=== PATIENT | female | born 1950 | race Caucasian/White ===

== ENCOUNTER 2016-10-28 11:41 | Emergency (ER) | payer OTHER ==
[2016-10-28] MEDS ORDERED: Prochlorperazine 10 MG/2 ML VIAL ONE (11:51)
[2016-10-28] MEDS ORDERED: diphenhydrAMINE HCl 25 MG CAP ONE (11:51)
[2016-10-28] MEDS ORDERED: Labetalol HCl 100 MG/20 ML VIAL ONE (11:57)
[2016-10-28 12:25] LABS: #Basophils 0.1 thou/uL (0.0-0.2); #Eosinphils 0.2 thou/uL (0.0-0.7); #Lymphocytes 1.4 thou/uL (1.20-3.40); #Monocytes 0.3 thou/uL (0.11-0.59); #Neutrophils 4.8 thou/uL (1.40-6.50); %Basophils 1.1 % (0.0-1.0); %Eosinophils 2.6 % (0.0-10.0); %Lymphocytes 20.5 % (21.0-51.0); %Monocytes 4.5 % (0.0-10.0); %Neutrophils 71.3 % (42.0-75.0); Hemoglobin 12.2 g/dL (12.0-16.0); Mean Corpuscular HGB CONC 33.5 g/dL (32.0-36.0); Mean Corpuscular Hemoglobin 29.6 pg (27.0-31.0); Mean Corpuscular Volume 88.4 fl (81.0-99.0); Mean Platelet Volume 8.2 fL (7.4-10.4); Platelet Count 184 thou/uL (130-400); RBC Distribution Width 14.7 % (11.5-14.5); Red Blood Cell (RBC) Count 4.13 mill/uL (4.20-5.40); White Blood Cell (WBC) Count 6.7 thou/uL (4.8-10.8)
[2016-10-28 12:27] LABS: ALT (SGPT) 13 U/L (8-55); AST (SGOT) 15 U/L (5-34); Albumin 3.8 g/dL (3.4-4.8); Alkaline Phosphatase 110 U/L (40-150); Anion Gap 13 mmol/L (10-20); BUN (Urea Nitrogen) 9 mg/dL (9.8-20.1); Bilirubin, Total 0.6 mg/dL (0.2-1.2); Calc. Creatinine Clearance 0 mL/min (70-130); Calcium 8.7 mg/dL (7.8-10.44); Carbon Dioxide 21 mmol/L (23-31); Chloride 110 mmol/L (98-107); Estimated GFR-MDRD 55; Globulin 3.3 g/dL (2.4-3.5); Glucose 154 mg/dL (80-115); Protein, Total 7.1 g/dL (6.0-8.3); Sodium 140 mmol/L (136-145)
[2016-10-28 12:29] LABS: CKMB 0.9 ng/mL (0-6.6); Troponin I Less than 0.010 ng/mL (< 0.028)
--- NOTE | 2016-10-28 17:00 | RAD ---
PORTABLE CHEST: Date: 10-28-16 Comparison: None. FINDINGS: An AP portable film at 1201 shows heart to be normal in size for body habitus and AP projection. The re is no vascular congestion, edema, or pleural effusion. The trachea probably deviates somewhat as it crosses the aortic arch. IMPRESSION: No acute thoracic finding. POS: HOME
== END 2016-10-28 13:20 | disposition home or self-care (01) ==
LOC: BURERS 11:41
DX: I11.0 Hypertensive heart disease with heart failure (principal); I50.9 Heart failure, unspecified; F41.9 Anxiety disorder, unspecified; F32.9 Major depressive disorder, single episode, unspecified; E11.9 Type 2 diabetes mellitus without complications; E78.5 Hyperlipidemia, unspecified; I25.10 Atherosclerotic heart disease of native coronary artery without angina pectoris; E78.00 Pure hypercholesterolemia, unspecified; Z79.899 Other long term (current) drug therapy; Z79.82 Long term (current) use of aspirin; Z79.02 Long term (current) use of antithrombotics/antiplatelets
CPT/HCPCS: 71010; 80053; 82553; 84443; 84484; 85025; 93005; 94760; 96374; J0780

== ENCOUNTER 2016-10-30 16:35 | Emergency (ER) | payer OTHER ==
[2016-10-30 17:06] LABS: #Eosinphils 0.2 thou/uL (0.0-0.7); #Lymphocytes 1.4 thou/uL (1.20-3.40); #Monocytes 0.3 thou/uL (0.11-0.59); #Neutrophils 5.3 thou/uL (1.40-6.50); %Basophils 0.6 % (0.0-1.0); %Eosinophils 3.2 % (0.0-10.0); %Monocytes 4.7 % (0.0-10.0); %Neutrophils 72.6 % (42.0-75.0); Hemoglobin 11.9 g/dL (12.0-16.0); Mean Corpuscular HGB CONC 32.5 g/dL (32.0-36.0); Mean Corpuscular Hemoglobin 28.6 pg (27.0-31.0); Mean Platelet Volume 7.4 fL (7.4-10.4); Platelet Count 181 thou/uL (130-400); RBC Distribution Width 14.7 % (11.5-14.5); Red Blood Cell (RBC) Count 4.15 mill/uL (4.20-5.40); White Blood Cell (WBC) Count 7.3 thou/uL (4.8-10.8)
[2016-10-30 17:28] LABS: Carbon Dioxide 23 mmol/L (23-31); Chloride 109 mmol/L (98-107); Potassium 3.7 mmol/L (3.5-5.1); Sodium 143 mmol/L (136-145)
[2016-10-30 17:29] LABS: ALT (SGPT) 14 U/L (8-55); AST (SGOT) 15 U/L (5-34); Albumin 3.6 g/dL (3.4-4.8); Alkaline Phosphatase 98 U/L (40-150); Anion Gap 10 mmol/L (10-20); BUN (Urea Nitrogen) 7 mg/dL (9.8-20.1); Bilirubin, Total 0.5 mg/dL (0.2-1.2); Calc. Creatinine Clearance 0 mL/min (70-130); Calcium 8.7 mg/dL (7.8-10.44); Estimated GFR-MDRD 59; Globulin 3.2 g/dL (2.4-3.5); Glucose 127 mg/dL (80-115); Protein, Total 6.8 g/dL (5.8-8.1)
[2016-10-30 17:30] LABS: CKMB 0.9 ng/mL (0-6.6); Troponin I Less than 0.010 ng/mL (< 0.028)
== END 2016-10-30 17:52 | disposition home or self-care (01) ==
LOC: BURERS 16:35
DX: I10 Essential (primary) hypertension (principal); E11.9 Type 2 diabetes mellitus without complications; E78.5 Hyperlipidemia, unspecified; I25.10 Atherosclerotic heart disease of native coronary artery without angina pectoris; E78.00 Pure hypercholesterolemia, unspecified; F32.9 Major depressive disorder, single episode, unspecified
CPT/HCPCS: 36415; 80053; 82553; 84484; 85025

== ENCOUNTER 2017-09-11 15:20 | Emergency (ER) | payer MEDICARE, MEDICAID ==
[2017-09-11] MEDS ORDERED: Ondansetron HCl/PF 4 MG/2 ML Vial ONE (15:40)
[2017-09-11 15:58] LABS: #Basophils 0.1 thou/uL (0.0-0.2); #Eosinphils 0.2 thou/uL (0.0-0.7); #Lymphocytes 1.4 thou/uL (1.20-3.40); #Monocytes 0.4 thou/uL (0.11-0.59); #Neutrophils 6.2 thou/uL (1.40-6.50); %Basophils 0.6 % (0.0-1.0); %Eosinophils 2.3 % (0.0-10.0); %Lymphocytes 16.7 % (21.0-51.0); %Monocytes 4.3 % (0.0-10.0); Hemoglobin 12.2 g/dL (12.0-16.0); Mean Corpuscular HGB CONC 35.4 g/dL (32.0-36.0); Mean Corpuscular Hemoglobin 29.9 pg (27.0-31.0); Mean Corpuscular Volume 84.4 fl (81.0-99.0); Mean Platelet Volume 8.3 fL (7.4-10.4); Platelet Count 225 thou/uL (130-400); RBC Distribution Width 15.1 % (11.5-14.5); Red Blood Cell (RBC) Count 4.06 mill/uL (4.20-5.40); White Blood Cell (WBC) Count 8.2 thou/uL (4.8-10.8)
[2017-09-11 16:11] LABS: ALT (SGPT) 14 U/L (8-55); AST (SGOT) 16 U/L (5-34); Alkaline Phosphatase 101 U/L (40-150); Anion Gap 15 mmol/L (10-20); BUN (Urea Nitrogen) 19 mg/dL (9.8-20.1); Bilirubin, Total 0.5 mg/dL (0.2-1.2); Calc. Creatinine Clearance 0 mL/min (70-130); Calcium 9.7 mg/dL (7.8-10.44); Carbon Dioxide 24 mmol/L (23-31); Chloride 106 mmol/L (98-107); Estimated GFR-MDRD 37; Globulin 3.6 g/dL (2.4-3.5); Glucose 145 mg/dL (80-115); Lipase 30 U/L (8-78); Potassium 4.2 mmol/L (3.5-5.1); Protein, Total 7.6 g/dL (6.0-8.3); Sodium 141 mmol/L (136-145)
== END 2017-09-11 17:00 | disposition home or self-care (01) ==
LOC: BURERS 15:20
DX: R19.7 Diarrhea, unspecified (principal); I25.10 Atherosclerotic heart disease of native coronary artery without angina pectoris; E11.9 Type 2 diabetes mellitus without complications; E78.5 Hyperlipidemia, unspecified; F32.9 Major depressive disorder, single episode, unspecified
CPT/HCPCS: 80053; 83690; 85025; 96361; 96374; 96375; J2405

== ENCOUNTER 2017-10-02 09:13 | Emergency (ER) | payer MEDICARE, MEDICAID ==
[2017-10-02] MEDS ORDERED: Nitroglycerin 0.4 MG TAB (25 Tab Bottle) ONE (09:26)
[2017-10-02] MEDS ORDERED: Ketorolac Tromethamine 30 MG/ML VIAL ONE (09:26)
[2017-10-02 09:33] LABS: #Basophils 0.1 thou/uL (0.0-0.2); #Eosinphils 0.2 thou/uL (0.0-0.7); #Lymphocytes 1.1 thou/uL (1.20-3.40); #Monocytes 0.4 thou/uL (0.11-0.59); #Neutrophils 6.7 thou/uL (1.40-6.50); %Basophils 0.6 % (0.0-1.0); %Eosinophils 1.9 % (0.0-10.0); %Lymphocytes 13.5 % (21.0-51.0); %Monocytes 4.6 % (0.0-10.0); %Neutrophils 79.4 % (42.0-75.0); Hemoglobin 11.3 g/dL (12.0-16.0); Mean Corpuscular HGB CONC 32.7 g/dL (32.0-36.0); Mean Corpuscular Hemoglobin 27.5 pg (27.0-31.0); Mean Corpuscular Volume 83.9 fl (81.0-99.0); Mean Platelet Volume 7.4 fL (7.4-10.4); Platelet Count 179 thou/uL (130-400); RBC Distribution Width 14.7 % (11.5-14.5); White Blood Cell (WBC) Count 8.4 thou/uL (4.8-10.8)
[2017-10-02 09:51] LABS: ALT (SGPT) 15 U/L (8-55); AST (SGOT) 11 U/L (5-34); Albumin 3.8 g/dL (3.4-4.8); Alkaline Phosphatase 109 U/L (40-150); Anion Gap 15 mmol/L (10-20); BUN (Urea Nitrogen) 14 mg/dL (9.8-20.1); Bilirubin, Total 0.5 mg/dL (0.2-1.2); Calc. Creatinine Clearance 0 mL/min (70-130); Calcium 8.9 mg/dL (7.8-10.44); Carbon Dioxide 24 mmol/L (23-31); Chloride 105 mmol/L (98-107); Estimated GFR-MDRD 37; Globulin 3.4 g/dL (2.4-3.5); Glucose 139 mg/dL (80-115); Lipase 13 U/L (8-78); Potassium 3.5 mmol/L (3.5-5.1); Protein, Total 7.2 g/dL (6.0-8.3); Sodium 140 mmol/L (136-145)
[2017-10-02 09:52] LABS: CKMB 0.6 ng/mL (0-6.6); Troponin I Less than 0.010 ng/mL (< 0.028)
[2017-10-02] MEDS ORDERED: Fentanyl 100 MCG/2 ML VIAL ONE (10:11)
[2017-10-02 12:39] LABS: CKMB 0.5 ng/mL (0-6.6); Troponin I Less than 0.010 ng/mL (< 0.028)
--- NOTE | 2017-10-02 20:29 | RAD ---
PORTABLE CHEST: 10/02/17 An AP portable film at 0925 is compared with a 10/28/16 study. The heart is minimally enlarged and unchanged in size. There is no vascular congestion, edema, or ple ural effusion. The lungs are clear. IMPRESSION: No acute thoracic finding. POS: HOME
== END 2017-10-02 13:05 | disposition home or self-care (01) ==
LOC: BURERS 09:13
DX: R07.89 Other chest pain (principal); I25.10 Atherosclerotic heart disease of native coronary artery without angina pectoris; E11.9 Type 2 diabetes mellitus without complications; E78.5 Hyperlipidemia, unspecified; I10 Essential (primary) hypertension; F32.9 Major depressive disorder, single episode, unspecified; Z79.82 Long term (current) use of aspirin; Z79.899 Other long term (current) drug therapy
CPT/HCPCS: 36415; 71045; 80053; 82553; 83690; 83880; 84484; 85025; 93005; 94760; 96361; 96374; 96375; J1885; J3010

== ENCOUNTER 2018-02-05 10:53 | Outpatient (CLI) | payer MEDICARE, OTHER ==
--- NOTE | 2018-02-05 22:09 | ULT ---
BILATERAL RENAL ULTRASOUND: 02/05/18 Ultrasonography of the urinary tract was performed for evaluation of renal failure. The right kidney measured 9.7 x 4.3 x 4.6 cm. There was perhaps some very minor thinning of the susan x, but not by much, and the echogenicity was normal. There is no hydronephrosis. No sign of mass was seen. The left kidney was 10.5 x 5.8 x 4.7 cm. Similarly, its cortex as marginally thinned but normal in ec hogenicity. There was no obstruction or mass. The urinary bladder is not very distended. The bladder wall was mildly thickened at 5 mm, but this is most likely due to lack of distention. IMPRESSION: No evidence of obstructive uropathy. POS: HOME
== END 2018-02-05 10:54 | disposition home or self-care (01) ==
LOC: BURULT 10:53
PROVIDERS: ATTEND Internal Medicine Nephrology
DX: N17.9 Acute kidney failure, unspecified (principal)
CPT/HCPCS: 76770

== ENCOUNTER 2018-02-11 18:55 | Emergency (ER) | payer MEDICARE, OTHER ==
--- NOTE | 2018-02-11 22:27 | RAD ---
LEFT ELBOW TWO VIEWS: 02/11/18 No fracture, dislocation, or joint effusion was seen. All bones appeared intact. IMPRESSION: No acute finding. POS: HOME
--- NOTE | 2018-02-11 22:32 | CT ---
CT OF THE BRAIN WITHOUT CONTRAST 02/11/18 No prior studies were available for comparison. The ventricles are normal in size for age and show no shift. There is some patchy low density areas in the deep white matter bilaterally, a little more so in the left frontal lobe than the right. These findings are most consistent with chronic white matte r ischemia. No intracranial bleeding or extra-axial hematoma was seen. The visible paranasal sinuses are clear. The calvarium appears intact. IMPRESSION: No acute intracranial findings. POS: HOME
== END 2018-02-11 20:00 | disposition home or self-care (01) ==
LOC: BURERS 18:55
DX: S01.01XA Laceration without foreign body of scalp, initial encounter (principal); S06.0X0A Concussion without loss of consciousness, initial encounter; I25.10 Atherosclerotic heart disease of native coronary artery without angina pectoris; E11.9 Type 2 diabetes mellitus without complications; E78.5 Hyperlipidemia, unspecified; I10 Essential (primary) hypertension; F32.9 Major depressive disorder, single episode, unspecified; Z79.82 Long term (current) use of aspirin; Z79.899 Other long term (current) drug therapy; W01.0XXA Fall on same level from slipping, tripping and stumbling without subsequent striking against object, initial encounter
CPT/HCPCS: 12001; 70450

== ENCOUNTER 2018-04-09 14:53 | Outpatient (CLI) | payer MEDICARE, MEDICAID | END 2018-04-09 14:54 | disposition home or self-care (01) | LOC: BURRAD 14:53 | PROVIDERS: ATTEND Family Medicine | DX: Z01.818 Encounter for other preprocedural examination (principal) | CPT/HCPCS: 93005; 93010 ==

== ENCOUNTER 2018-05-22 14:48 | Outpatient (CLI) | payer MEDICARE, MEDICAID ==
--- NOTE | 2018-05-22 20:38 | RAD ---
RIGHT KNEE FOUR VIEWS: 05/22/18 No fracture, joint effusion, or acute bony change was seen. There is minor medial joint space narrowi ng and minor osteophytes. IMPRESSION: No acute finding. POS: HOME
--- NOTE | 2018-05-22 20:39 | RAD ---
LEFT KNEE FOUR VIEWS: 05/22/18 No fracture, dislocation or joint effusion was seen. The joint surfaces appear normal. IMPRESSION: No acute finding. POS: HOME
== END 2018-05-22 14:49 | disposition home or self-care (01) ==
LOC: BURRAD 14:48
PROVIDERS: ATTEND Family Medicine
DX: M25.561 Pain in right knee (principal); M25.562 Pain in left knee

== ENCOUNTER 2018-06-25 15:24 | Emergency (ER) | payer MEDICARE, MEDICAID ==
--- NOTE | 2018-06-25 20:29 | RAD ---
LEFT KNEE FOUR VIEWS: 06/25/2018 COMPARISON: 05/22/2018 FINDINGS: There are no new findings. No fracture, periosteal reaction, or bony sclerosis is seen. There is no joint effusion. The joint space appears normal. IMPRESSION: No significant finding. POS: HOME
== END 2018-06-25 16:20 | disposition home or self-care (01) ==
LOC: BURERS 15:24
DX: M23.92 Unspecified internal derangement of left knee (principal); L03.116 Cellulitis of left lower limb; I25.10 Atherosclerotic heart disease of native coronary artery without angina pectoris; E11.9 Type 2 diabetes mellitus without complications; E78.5 Hyperlipidemia, unspecified; I10 Essential (primary) hypertension; F32.9 Major depressive disorder, single episode, unspecified; Z79.82 Long term (current) use of aspirin; Z79.899 Other long term (current) drug therapy

== ENCOUNTER 2018-09-16 16:43 | Emergency (ER) | payer MEDICARE, MEDICAID ==
[2018-09-16] MEDS ORDERED: Aspirin Chewable 81 MG TAB ONE (16:56)
[2018-09-16] MEDS ORDERED: Nitroglycerin 0.4 MG TAB 1 EACH ONE ×2 (16:56→17:06)
[2018-09-16] MEDS ORDERED: Benzonatate 100 MG CAP ONE (17:03)
[2018-09-16 17:09] LABS: #Eosinphils 0.2 thou/uL (0.0-0.7); #Lymphocytes 1.6 thou/uL (1.20-3.40); #Monocytes 0.3 thou/uL (0.11-0.59); #Neutrophils 6.3 thou/uL (1.40-6.50); %Basophils 0.6 % (0.0-1.0); %Lymphocytes 19.3 % (21.0-51.0); %Neutrophils 75.1 % (42.0-75.0); Hemoglobin 11.2 g/dL (12.0-16.0); Mean Corpuscular HGB CONC 32.5 g/dL (32.0-36.0); Mean Corpuscular Hemoglobin 28.6 pg (27.0-31.0); Mean Platelet Volume 8.9 fL (7.4-10.4); Platelet Count 194 thou/uL (130-400); RBC Distribution Width 15.1 % (11.5-14.5); Red Blood Cell (RBC) Count 3.92 mill/uL (4.20-5.40); White Blood Cell (WBC) Count 8.3 thou/uL (4.8-10.8)
[2018-09-16 17:21] LABS: ALT (SGPT) 18 U/L (8-55); AST (SGOT) 20 U/L (5-34); Alkaline Phosphatase 107 U/L (40-150); Anion Gap 16 mmol/L (10-20); BUN (Urea Nitrogen) 8 mg/dL (9.8-20.1); Bilirubin, Total 0.3 mg/dL (0.2-1.2); Calc. Creatinine Clearance 0 mL/min (70-130); Calcium 8.7 mg/dL (7.8-10.44); Carbon Dioxide 21 mmol/L (23-31); Chloride 107 mmol/L (98-107); Estimated GFR-MDRD 42; Globulin 3.7 g/dL (2.4-3.5); Glucose 169 mg/dL (80-115); Protein, Total 7.7 g/dL (6.0-8.3); Sodium 140 mmol/L (136-145)
[2018-09-16] MEDS ORDERED: Pantoprazole 40 MG VIAL ONE (17:51)
--- NOTE | 2018-09-16 20:00 | RAD ---
PORTABLE CHEST 09/16/18 An AP portable film at 1658 is compared with a 10/02/17 study. The heart is normal in size. The patient is turned to the side which probably explains slight increas e in markings density on the left side. Otherwise, no definite infiltrate was seen. There is no conge stive change. IMPRESSION: No definite acute findings. POS: HOME
== END 2018-09-16 18:28 | disposition short-term general hospital (02) ==
LOC: BURERS 16:43
DX: R07.9 Chest pain, unspecified (principal); I25.10 Atherosclerotic heart disease of native coronary artery without angina pectoris; E11.9 Type 2 diabetes mellitus without complications; E78.5 Hyperlipidemia, unspecified; I10 Essential (primary) hypertension; F32.9 Major depressive disorder, single episode, unspecified; Z79.82 Long term (current) use of aspirin; Z79.899 Other long term (current) drug therapy
CPT/HCPCS: 71045; 80053; 83880; 84484; 85025; 93005; 96374; C9113

== ENCOUNTER 2019-01-21 16:05 | Emergency (ER) | payer MEDICARE, MEDICAID ==
--- NOTE | 2019-01-21 18:39 | RAD ---
RIGHT HAND THREE VIEWS: 01/21/2019 FINDINGS: No acute fracture is seen. There are some bony densities just medial to the hamate and the triquetra l bone. Their rounded margins suggest that they are more likely old than new. There are no findings strongly suggestive of acute fracture. Arteriosclerotic calcification is seen in the radial artery. The remainder of the hand and wrist appear intact. IMPRESSION: Probable old trauma medially, but no definite acute finding seen. POS: HOME
--- NOTE | 2019-01-21 18:40 | RAD ---
RIGHT WRIST THREE VIEWS: 01/21/2019 FINDINGS: Bony densities are seen at the medial aspect of the wrist, which are presumably due to old trauma, gi dc their rounded nature. I do not see an acute fracture. The distal radius and ulna appear intact. Arterial calcifications are present in the radial artery. IMPRESSION: Old trauma medially but no acute findings. POS: HOME
== END 2019-01-21 17:38 | disposition home or self-care (01) ==
LOC: BURERS 16:05
DX: S60.211A Contusion of right wrist, initial encounter (principal); I25.10 Atherosclerotic heart disease of native coronary artery without angina pectoris; E11.9 Type 2 diabetes mellitus without complications; E78.5 Hyperlipidemia, unspecified; I10 Essential (primary) hypertension; F32.9 Major depressive disorder, single episode, unspecified; Z79.899 Other long term (current) drug therapy; Z79.82 Long term (current) use of aspirin; X58.XXXA Exposure to other specified factors, initial encounter

== ENCOUNTER → 2019-04-25 | Emergency (ER) | payer MEDICARE, MEDICAID | LOC: BURERS 15:29 | DX: K04.7 Periapical abscess without sinus (principal); E11.9 Type 2 diabetes mellitus without complications; F32.9 Major depressive disorder, single episode, unspecified; I10 Essential (primary) hypertension; I25.10 Atherosclerotic heart disease of native coronary artery without angina pectoris; E78.5 Hyperlipidemia, unspecified; Z79.82 Long term (current) use of aspirin; Z79.899 Other long term (current) drug therapy; Z79.4 Long term (current) use of insulin | CPT/HCPCS: 99282 ==

== ENCOUNTER 2019-07-23 12:32 | Emergency (ER) | payer MEDICARE, MEDICAID | END 2019-07-23 12:55 | disposition home or self-care (01) | LOC: BURERS 12:32 | DX: K04.7 Periapical abscess without sinus (principal); I25.10 Atherosclerotic heart disease of native coronary artery without angina pectoris; E11.9 Type 2 diabetes mellitus without complications; E78.5 Hyperlipidemia, unspecified; F32.9 Major depressive disorder, single episode, unspecified; Z79.899 Other long term (current) drug therapy; Z79.82 Long term (current) use of aspirin | CPT/HCPCS: 99283 ==

== ENCOUNTER 2019-08-22 14:52 | Emergency (ER) | payer MEDICARE, MEDICAID ==
[2019-08-22 15:19] LABS: Bilirubin Small (Negative); Blood, Urine Moderate (Negative); Clarity Cloudy (Clear); Glucose, Urine (Dipstick) Negative (Negative); Leukocyte Small (Negative); Nitrite Negative (Negative); Protein, Urine (Dipstick) Negative (Neg-Trace); Urobilinogen 0.2 mg/dL (Less than 2)
[2019-08-22 15:28] LABS: Bacteria/HPF 3+ HPF (None Seen); Broad Cast None Seen LPF (None Seen); Calcium Oxalate Crystals None Seen HPF (None Seen); Cellular Cast None Seen LPF (None Seen); Epithelial Cast None Seen LPF (None Seen); Fatty Cast None Seen LPF (None Seen); Mucous/LPF 1+ LPF (<2+); Other Casts None Seen LPF (None Seen); Oval Fat Bodies/HPF None Seen HPF (None Seen); Red Blood Cell Cast None Seen LPF (None Seen); Renal Epithelial None Seen HPF (None Seen); Sperm/HPF None Seen HPF (None Seen); Transitional Epithelial None Seen HPF (None Seen); Trichomonas/HPF None Seen HPF (None Seen); Triple Phosphate Crystal None Seen HPF (None Seen); Unclassified Crystals None Seen HPF (None Seen); WBC/HPF 21-50 HPF (0-3); Waxy Cast None Seen LPF (None Seen); White Blood Cell Cast None Seen LPF (None Seen); Yeast-Budding None Seen HPF (None Seen); Yeast-Hyphae None Seen HPF (None Seen)
== END 2019-08-22 16:01 | disposition home or self-care (01) ==
LOC: BURERS 14:52
DX: N39.0 Urinary tract infection, site not specified (principal); I25.10 Atherosclerotic heart disease of native coronary artery without angina pectoris; E11.9 Type 2 diabetes mellitus without complications; E78.5 Hyperlipidemia, unspecified; I10 Essential (primary) hypertension; F32.9 Major depressive disorder, single episode, unspecified; Z79.82 Long term (current) use of aspirin; Z79.899 Other long term (current) drug therapy
CPT/HCPCS: 81003; 81015; 87077; 87086; 87186; 99283

== ENCOUNTER 2019-12-30 14:56 | Emergency (ER) | payer MEDICARE, OTHER ==
[2019-12-30 15:55] LABS: #Eosinphils 0.1 thou/uL (0.0-0.7); #Lymphocytes 1.3 thou/uL (1.20-3.40); #Monocytes 0.3 thou/uL (0.11-0.59); #Neutrophils 5.8 thou/uL (1.40-6.50); %Basophils 0.7 % (0.0-1.0); %Eosinophils 1.8 % (0.0-10.0); %Lymphocytes 16.8 % (21.0-51.0); %Monocytes 3.4 % (0.0-10.0); %Neutrophils 77.4 % (42.0-75.0); Hemoglobin 11.6 g/dL (12.0-16.0); Mean Corpuscular HGB CONC 30.8 g/dL (32.0-36.0); Mean Corpuscular Volume 91.1 fL (78.0-98.0); Mean Platelet Volume 10.1 fL (7.4-10.4); Platelet Count 179 thou/uL (130-400); RBC Distribution Width 15.2 % (11.5-14.5); Red Blood Cell (RBC) Count 4.15 mill/uL (4.20-5.40); White Blood Cell (WBC) Count 7.5 thou/uL (4.8-10.8)
[2019-12-30 16:02] LABS: Bilirubin Negative (Negative); Clarity CLEAR (Clear); Glucose, Urine (Dipstick) 500 mg/dL (Negative); Ketone, Urine Negative (Negative); Leukocyte Negative (Negative); Nitrite Negative (Negative); Protein, Urine (Dipstick) Negative (Neg-Trace); Specific Gravity, Urine 1.015 (1.005-1.030); Urobilinogen 0.2 mg/dL (Less than 2); pH, Urine 5.5 (5.0-9.0)
[2019-12-30 16:03] LABS: Blood, Urine Negative (Negative)
[2019-12-30 16:06] LABS: ALT (SGPT) 14 U/L (8-55); AST (SGOT) 11 U/L (5-34); Albumin 4.2 g/dL (3.4-4.8); Alkaline Phosphatase 115 U/L (40-110); Anion Gap 17 mmol/L (10-20); BUN (Urea Nitrogen) 19 mg/dL (9.8-20.1); Bilirubin, Total 0.4 mg/dL (0.2-1.2); Calc. Creatinine Clearance 0 mL/min (70-130); Calcium 10.2 mg/dL (7.8-10.44); Carbon Dioxide 25 mmol/L (23-31); Chloride 95 mmol/L (98-107); Estimated GFR-MDRD 27; Globulin 3.4 g/dL (2.4-3.5); Potassium 3.9 mmol/L (3.5-5.1); Protein, Total 7.6 g/dL (6.0-8.3); Sodium 133 mmol/L (136-145)
[2019-12-30] MEDS ORDERED: Insulin Regular 300 UNITS/3 ML VIAL ONE (16:07)
[2019-12-30 16:17] LABS: Glucose 630 mg/dL (80-115)
--- NOTE | 2019-12-30 20:27 | RAD ---
CHEST TWO VIEWS: 12/30/19 Comparison is made with the 09/20/18 study. The heart is normal in size and the lungs are clear. No focal infiltrate or effusion was seen. At mos t, some of the basilar markings may be mildly prominent, but they are no different than the prior crow dy. There is no vascular congestion, edema, or pleural effusion. IMPRESSION: No acute thoracic finding. POS: HOME
== END 2019-12-30 17:23 | disposition home or self-care (01) ==
LOC: BURERS 14:56
DX: E11.65 Type 2 diabetes mellitus with hyperglycemia (principal); I25.10 Atherosclerotic heart disease of native coronary artery without angina pectoris; E78.5 Hyperlipidemia, unspecified; I10 Essential (primary) hypertension; F32.9 Major depressive disorder, single episode, unspecified; Z79.899 Other long term (current) drug therapy; Z79.82 Long term (current) use of aspirin; Z79.4 Long term (current) use of insulin
CPT/HCPCS: 36416; 71046; 80053; 81003; 84443; 84484; 85025; 94760; 96361; 96374; J1815

== ENCOUNTER 2020-02-24 09:45 | Emergency (ER) | payer MEDICARE, OTHER ==
[2020-02-24 10:23] LABS: #Basophils 0.1 thou/uL (0.0-0.2); #Eosinphils 0.1 thou/uL (0.0-0.7); #Lymphocytes 1.9 thou/uL (1.20-3.40); #Monocytes 0.5 thou/uL (0.11-0.59); #Neutrophils 6.2 thou/uL (1.40-6.50); %Basophils 0.9 % (0.0-1.0); %Eosinophils 1.4 % (0.0-10.0); %Lymphocytes 21.8 % (21.0-51.0); %Monocytes 6.1 % (0.0-10.0); %Neutrophils 69.9 % (42.0-75.0); Mean Corpuscular HGB CONC 30.9 g/dL (32.0-36.0); Mean Corpuscular Hemoglobin 27.4 pg (27.0-31.0); Mean Corpuscular Volume 88.7 fL (78.0-98.0); Mean Platelet Volume 9.8 fL (7.4-10.4); Platelet Count 221 thou/uL (130-400); RBC Distribution Width 14.3 % (11.5-14.5); Red Blood Cell (RBC) Count 4.74 mill/uL (4.20-5.40); White Blood Cell (WBC) Count 8.8 thou/uL (4.8-10.8)
[2020-02-24 10:34] LABS: ALT (SGPT) 21 U/L (8-55); AST (SGOT) 16 U/L (5-34); Albumin 4.2 g/dL (3.4-4.8); Alkaline Phosphatase 128 U/L (40-110); Anion Gap 18 mmol/L (10-20); BUN (Urea Nitrogen) 17 mg/dL (9.8-20.1); Bilirubin, Total 0.5 mg/dL (0.2-1.2); Calc. Creatinine Clearance 0 mL/min (70-130); Calcium 9.9 mg/dL (7.8-10.44); Carbon Dioxide 28 mmol/L (23-31); Chloride 96 mmol/L (98-107); Estimated GFR-MDRD 34; Globulin 3.5 g/dL (2.4-3.5); Glucose 177 mg/dL (80-115); Lipase 24 U/L (8-78); Potassium 3.4 mmol/L (3.5-5.1); Protein, Total 7.7 g/dL (6.0-8.3); Sodium 139 mmol/L (136-145)
[2020-02-24 10:37] LABS: Bilirubin Small (Negative); Blood, Urine Negative (Negative); Clarity Cloudy (Clear); Glucose, Urine (Dipstick) Negative (Negative); Ketone, Urine Trace mg/dL (Negative); Leukocyte Negative (Negative); Nitrite Negative (Negative); Protein, Urine (Dipstick) Trace mg/dL (Neg-Trace); Specific Gravity, Urine 1.028 (1.002-1.036)
[2020-02-24] MEDS ORDERED: Iopamidol 370 76% 100 ML VIAL ONE (13:54)
--- NOTE | 2020-02-24 19:02 | CT ---
CT ABDOMEN AND PELVIS WITH CONTRAST: 02/24/20 The lung bases are clear. Some calcification is seen in the coronary arteries, particularly the LAD. The liver, spleen, pancreas, adrenal glands, kidneys and abdominal aorta showed no acute findings. Th e gallbladder was a little generous in volume, but its overall size really does not measure excessive , nor was there any signs of stones or wall thickening. The bowel shows no distention, wall thickenin g or inflammatory change around it. No free air or free fluid was detected. CT of the pelvis shows no pelvic masses, fluid collections, or inflammatory changes. Degenerative marquita nges are present in the spine. Finally, there may be a small hiatal hernia. IMPRESSION: No acute abdominal or pelvic findings to explain the patient's pain. Preliminary report called to Dr. Lund at 11:13 on 02/24/20. POS: HOME
== END 2020-02-24 11:25 | disposition home or self-care (01) ==
LOC: BURERS 09:45
DX: R11.2 Nausea with vomiting, unspecified (principal); T47.2X5A Adverse effect of stimulant laxatives, initial encounter; E11.9 Type 2 diabetes mellitus without complications; I25.10 Atherosclerotic heart disease of native coronary artery without angina pectoris; E78.5 Hyperlipidemia, unspecified; I10 Essential (primary) hypertension; F32.9 Major depressive disorder, single episode, unspecified; Z79.82 Long term (current) use of aspirin; Z79.4 Long term (current) use of insulin; Z79.899 Other long term (current) drug therapy
CPT/HCPCS: 36416; 74177; 80053; 81003; 83605; 83690; 85025; 96360; Q9967

== ENCOUNTER 2020-04-01 13:15 | Emergency (ER) | payer MEDICARE, OTHER ==
[2020-04-01 14:27] LABS: #Eosinphils 0.2 thou/uL (0.0-0.7); #Lymphocytes 1.5 thou/uL (1.20-3.40); #Monocytes 0.5 thou/uL (0.11-0.59); #Neutrophils 5.9 thou/uL (1.40-6.50); %Basophils 0.6 % (0.0-1.0); %Eosinophils 2.1 % (0.0-10.0); %Lymphocytes 18.6 % (21.0-51.0); %Monocytes 5.6 % (0.0-10.0); %Neutrophils 73.1 % (42.0-75.0); Hemoglobin 11.9 g/dL (12.0-16.0); Mean Corpuscular HGB CONC 31.9 g/dL (32.0-36.0); Mean Corpuscular Hemoglobin 28.1 pg (27.0-31.0); Mean Corpuscular Volume 88.2 fL (78.0-98.0); Mean Platelet Volume 8.9 fL (7.4-10.4); Platelet Count 178 thou/uL (130-400); RBC Distribution Width 14.9 % (11.5-14.5); Red Blood Cell (RBC) Count 4.23 mill/uL (4.20-5.40); White Blood Cell (WBC) Count 8.1 thou/uL (4.8-10.8)
[2020-04-01 14:41] LABS: ALT (SGPT) 12 U/L (8-55); AST (SGOT) 11 U/L (5-34); Albumin 4.1 g/dL (3.4-4.8); Alkaline Phosphatase 107 U/L (40-110); Anion Gap 16 mmol/L (10-20); BUN (Urea Nitrogen) 15 mg/dL (9.8-20.1); Bilirubin, Total 0.7 mg/dL (0.2-1.2); Calc. Creatinine Clearance 0 mL/min (70-130); Calcium 9.5 mg/dL (7.8-10.44); Carbon Dioxide 29 mmol/L (23-31); Chloride 97 mmol/L (98-107); Estimated GFR-MDRD 34; Globulin 3.3 g/dL (2.4-3.5); Glucose 169 mg/dL (80-115); Potassium 3.4 mmol/L (3.5-5.1); Protein, Total 7.4 g/dL (6.0-8.3); Sodium 139 mmol/L (136-145)
[2020-04-01] MEDS ORDERED: Clindamycin/D5W 600 mg/50 ml Premix Bag ONE (16:06)
[2020-04-01] MEDS ORDERED: HYDROmorphone 0.5 MG/0.5 ML SYRINGE ONE (16:22)
--- NOTE | 2020-04-01 17:53 | CT ---
CT OF THE NECK WITHOUT CONTRAST: 04/01/[address] of the lower face and neck was performed for evaluation of dental pain and swelling on the left side of the mandible. There is obvious swelling in the soft tissues anterior to the left side of the mandible anteriorly. T he lower left second bicuspid is carious and appears to have a periapical abscess at its root tip. T his is tooth #20. The soft tissue swelling anterior to the mandible at this point does not show defin ite fluid collections at this point in time to suggest a drainable abscess. I do not see an abscess i n the floor of the mouth. Dentition is poor in general. The visible portions of the maxillary sinuses were clear. The mandible is otherwise intact. Degenerative changes are seen in the spine. IMPRESSION: Significant dental caries in the lower left second bicuspid (#20) with evidence of a periapical absce ss and soft tissue swelling just anterior to the mandible at this point. Preliminary findings discussed with Dr. Reyes at 1536 on 04/01/20. POS: HOME
== END 2020-04-01 18:59 | disposition short-term general hospital (02) ==
LOC: BURERS 13:15
DX: K04.7 Periapical abscess without sinus (principal); L03.211 Cellulitis of face; I25.10 Atherosclerotic heart disease of native coronary artery without angina pectoris; E11.9 Type 2 diabetes mellitus without complications; E78.5 Hyperlipidemia, unspecified; I10 Essential (primary) hypertension; F32.9 Major depressive disorder, single episode, unspecified; Z79.899 Other long term (current) drug therapy; Z79.82 Long term (current) use of aspirin
CPT/HCPCS: 36415; 70490; 80053; 85025; 96365; 96375; J1170; J3490

== ENCOUNTER 2020-08-17 11:25 | Emergency (ER) | payer MEDICARE, OTHER ==
[2020-08-17 12:14] LABS: #Basophils 0.1 thou/uL (0.0-0.2); #Eosinphils 0.1 thou/uL (0.0-0.7); #Lymphocytes 1.3 thou/uL (1.20-3.40); #Monocytes 0.3 thou/uL (0.11-0.59); #Neutrophils 4.4 thou/uL (1.40-6.50); %Lymphocytes 20.8 % (21.0-51.0); %Monocytes 4.8 % (0.0-10.0); %Neutrophils 71.3 % (42.0-75.0); Hemoglobin 12.3 g/dL (12.0-16.0); Mean Corpuscular HGB CONC 33.2 g/dL (32.0-36.0); Mean Corpuscular Hemoglobin 28.5 pg (27.0-31.0); Mean Corpuscular Volume 86.1 fL (78.0-98.0); Mean Platelet Volume 9.9 fL (7.4-10.4); Platelet Count 173 thou/uL (130-400); RBC Distribution Width 14.5 % (11.5-14.5); White Blood Cell (WBC) Count 6.2 thou/uL (4.8-10.8)
[2020-08-17 12:26] LABS: ALT (SGPT) 20 U/L (8-55); AST (SGOT) 20 U/L (5-34); Albumin 3.8 g/dL (3.4-4.8); Alkaline Phosphatase 113 U/L (40-110); Anion Gap 16 mmol/L (10-20); BUN (Urea Nitrogen) 9 mg/dL (9.8-20.1); Bilirubin, Total 0.9 mg/dL (0.2-1.2); Calc. Creatinine Clearance 0 mL/min (70-130); Calcium 8.9 mg/dL (7.8-10.44); Carbon Dioxide 26 mmol/L (23-31); Chloride 97 mmol/L (98-107); Globulin 3.5 g/dL (2.4-3.5); Glucose 457 mg/dL (80-115); Potassium 3.3 mmol/L (3.5-5.1); Protein, Total 7.3 g/dL (5.8-8.1); Sodium 136 mmol/L (136-145)
[2020-08-17 13:33] LABS: Bilirubin Negative (Negative); Blood, Urine Negative (Negative); Clarity Cloudy (Clear); Glucose, Urine (Dipstick) 500 mg/dL (Negative); Ketone, Urine Negative (Negative); Leukocyte Negative (Negative); Nitrite Negative (Negative); Protein, Urine (Dipstick) Trace mg/dL (Neg-Trace); Specific Gravity, Urine 1.015 (1.005-1.030); Urobilinogen 0.2 mg/dL (Less than 2); pH, Urine 5.5 (5.0-9.0)
--- NOTE | 2020-08-17 15:19 | CT ---
CT OF THE BRAIN WITHOUT CONTRAST: 08/17/20 Computed tomography of the brain was done. Reference was made to a 01/11/20 MRI. The ventricles are no rmal in size for age. No intracranial bleeding or extra-axial hematoma was seen. There is no sign of acute stroke, mass or edema. The skull appears intact. There is no air fluid level in the sphenoid si nus. IMPRESSION: No acute intracranial findings. Preliminary report called to Debra in ER at 1235 on 08/17/20. POS: HOME
== END 2020-08-17 14:45 ==
LOC: BURERS 11:25
DX: E11.65 Type 2 diabetes mellitus with hyperglycemia (principal); R27.0 Ataxia, unspecified; E78.5 Hyperlipidemia, unspecified; I10 Essential (primary) hypertension; Z79.82 Long term (current) use of aspirin; Z79.4 Long term (current) use of insulin; Z79.899 Other long term (current) drug therapy
CPT/HCPCS: 70450; 80053; 81003; 84443; 84484; 85025; 93005; 94760

== ENCOUNTER 2020-09-06 10:11 | Inpatient (IN) | payer MEDICARE, MEDICAID ==
[2020-09-06 15:07] VITALS: BMI 29.0
[2020-09-06] MEDS ORDERED: Dextrose 50% Abboject 50 ML SYRINGE IVP PRN (18:30)
[2020-09-06] MEDS ORDERED: Dextrose 5% in Water 1,000 ML IV PRN (18:30)
[2020-09-06] MEDS: Rosuvastatin 10 MG TAB PO SCH (21:48)
[2020-09-06] MEDS: Pregabalin 75 MG CAP PO SCH (21:49)
[2020-09-06] MEDS: Ibuprofen 200 MG TAB PO PRN (21:53)
[2020-09-06] MEDS: HumuLIN 70/30 (300 UNITS/3 ML VIAL) SC SCH (21:55)
[2020-09-07] MEDS: HumuLIN 70/30 (300 UNITS/3 ML VIAL) SC SCH ×2 (09:56→21:51)
[2020-09-07] MEDS: Ibuprofen 200 MG TAB PO PRN ×2 (11:58→21:53)
[2020-09-07 16:45] LABS: Bilirubin Negative (Negative); Blood, Urine Moderate (Negative); Clarity Slightly Cloudy (Clear); Glucose, Urine (Dipstick) Negative (Negative); Ketone, Urine Negative (Negative); Leukocyte Moderate (Negative); Nitrite Positive (Negative); Protein, Urine (Dipstick) 30 mg/dL (Neg-Trace); Specific Gravity, Urine 1.025 (1.005-1.030); Urobilinogen 0.2 mg/dL (Less than 2); pH, Urine 5.5 (5.0-9.0)
[2020-09-07 16:57] LABS: WBC/HPF Greater than 50 HPF (0-3)
[2020-09-07 16:58] LABS: Bacteria/HPF 2+ HPF (None Seen)
[2020-09-07] MEDS: Ciprofloxacin 500 MG TAB PO SCH (21:48)
[2020-09-07] MEDS: Rosuvastatin 10 MG TAB PO SCH (21:51)
[2020-09-07] MEDS: Pregabalin 75 MG CAP PO SCH (21:52)
[2020-09-08] MEDS: Melatonin 3 MG TAB PO PRN ×2 (02:03→23:22)
[2020-09-08] MEDS: Ciprofloxacin 500 MG TAB PO SCH ×2 (09:52→20:52)
[2020-09-08] MEDS: HumuLIN 70/30 (300 UNITS/3 ML VIAL) SC SCH ×2 (09:53→20:53)
[2020-09-08] MEDS: Rosuvastatin 10 MG TAB PO SCH (20:52)
[2020-09-08] MEDS: Pregabalin 75 MG CAP PO SCH (20:54)
[2020-09-09] MEDS: Ibuprofen 200 MG TAB PO PRN (03:37)
[2020-09-09] MEDS: Ciprofloxacin 500 MG TAB PO SCH ×2 (05:13→21:56)
[2020-09-09] MEDS: HumuLIN 70/30 (300 UNITS/3 ML VIAL) SC SCH ×2 (09:18→21:56)
[2020-09-09] MEDS ORDERED: Acetaminophen 500 MG TAB PO PRN (15:57)
[2020-09-09] MEDS: Rosuvastatin 10 MG TAB PO SCH (21:56)
[2020-09-09] MEDS: Pregabalin 75 MG CAP PO SCH (21:57)
[2020-09-09] MEDS: Zolpidem Tartrate 5 MG TAB PO PRN (22:01)
[2020-09-10] MEDS: Ciprofloxacin 500 MG TAB PO SCH ×2 (06:26→19:57)
[2020-09-10] MEDS: Amlodipine 5 MG TAB PO SCH (10:37)
[2020-09-10] MEDS: HumuLIN 70/30 (300 UNITS/3 ML VIAL) SC SCH ×2 (10:40→21:59)
[2020-09-10] MEDS: HumaLOG 300 UNITS/3 ML VIAL SC PRN (13:41)
[2020-09-10] MEDS: Rosuvastatin 10 MG TAB PO SCH (21:58)
[2020-09-10] MEDS: Zolpidem Tartrate 5 MG TAB PO PRN (21:58)
[2020-09-10] MEDS: Pregabalin 75 MG CAP PO SCH (22:05)
[2020-09-11] MEDS: Ciprofloxacin 500 MG TAB PO SCH ×2 (05:43→20:30)
[2020-09-11] MEDS: HumuLIN 70/30 (300 UNITS/3 ML VIAL) SC SCH ×2 (09:02→20:31)
[2020-09-11] MEDS: Amlodipine 5 MG TAB PO SCH (09:04)
[2020-09-11] MEDS: HumaLOG 300 UNITS/3 ML VIAL SC PRN (11:26)
[2020-09-11] MEDS: Rosuvastatin 10 MG TAB PO SCH (20:30)
[2020-09-11] MEDS: Pregabalin 75 MG CAP PO SCH (20:31)
[2020-09-11] MEDS: Zolpidem Tartrate 5 MG TAB PO PRN (22:07)
[2020-09-12] MEDS: Ibuprofen 200 MG TAB PO PRN ×2 (00:28→22:50)
[2020-09-12] MEDS: Ciprofloxacin 500 MG TAB PO SCH (05:05)
[2020-09-12] MEDS: Amlodipine 5 MG TAB PO SCH (08:42)
[2020-09-12] MEDS: HumuLIN 70/30 (300 UNITS/3 ML VIAL) SC SCH ×2 (08:48→20:43)
[2020-09-12] MEDS: HumaLOG 300 UNITS/3 ML VIAL SC PRN ×2 (12:05→17:49)
[2020-09-12] MEDS: Rosuvastatin 10 MG TAB PO SCH (20:44)
[2020-09-12] MEDS: Pregabalin 75 MG CAP PO SCH (20:44)
[2020-09-12] MEDS: Zolpidem Tartrate 5 MG TAB PO PRN (22:48)
[2020-09-13] MEDS: Amlodipine 5 MG TAB PO SCH (09:54)
[2020-09-13] MEDS: HumuLIN 70/30 (300 UNITS/3 ML VIAL) SC SCH ×2 (10:22→20:51)
[2020-09-13] MEDS: Rosuvastatin 10 MG TAB PO SCH (20:52)
[2020-09-13] MEDS: Pregabalin 75 MG CAP PO SCH (20:52)
[2020-09-13] MEDS: Zolpidem Tartrate 5 MG TAB PO PRN (21:11)
[2020-09-14 06:25] VITALS: TEMP 97.9
[2020-09-14] MEDS: Amlodipine 5 MG TAB PO SCH (08:48)
[2020-09-14] MEDS: HumuLIN 70/30 (300 UNITS/3 ML VIAL) SC SCH (08:55)
[2020-09-14 08:58] VITALS: BP 130/61
== END 2020-09-14 13:50 | disposition home or self-care (01) | DRG 93 ==
LOC: BURMED 10:14
PROVIDERS: ADMIT Family Medicine; ATTEND Family Medicine
DX: R47.1 Dysarthria and anarthria (principal); R26.81 Unsteadiness on feet; I10 Essential (primary) hypertension; E11.9 Type 2 diabetes mellitus without complications; I25.10 Atherosclerotic heart disease of native coronary artery without angina pectoris; F32.9 Major depressive disorder, single episode, unspecified; K21.9 Gastro-esophageal reflux disease without esophagitis; F41.9 Anxiety disorder, unspecified; G47.00 Insomnia, unspecified; R29.6 Repeated falls; Z95.5 Presence of coronary angioplasty implant and graft; Z90.49 Acquired absence of other specified parts of digestive tract; Z88.6 Allergy status to analgesic agent; Z88.0 Allergy status to penicillin; Z79.4 Long term (current) use of insulin; Z90.710 Acquired absence of both cervix and uterus
CPT/HCPCS: 36416; 81001; J1815

== ENCOUNTER 2021-09-28 23:28 | Emergency (ER) | payer MEDICARE, OTHER ==
[2021-09-29] MEDS ORDERED: Boostrix 0.5 ML (Tdap) VIAL ONE (00:02)
== END 2021-09-29 00:12 | disposition home or self-care (01) ==
LOC: BURERS 23:28
DX: S61.200A Unspecified open wound of right index finger without damage to nail, initial encounter (principal); Z23 Encounter for immunization; W26.8XXA Contact with other sharp object(s), not elsewhere classified, initial encounter
CPT/HCPCS: 90471; 90715

== ENCOUNTER 2022-01-24 18:50 | Emergency (ER) | payer MEDICARE, OTHER ==
[2022-01-24 19:38] LABS: #Basophils 0.1 thou/uL (0.0-0.2); #Eosinphils 0.2 thou/uL (0.0-0.7); #Lymphocytes 1.7 thou/uL (1.20-3.40); #Monocytes 0.4 thou/uL (0.11-0.59); #Neutrophils 6.1 thou/uL (1.40-6.50); %Basophils 0.8 % (0.0-1.0); %Eosinophils 2.1 % (0.0-10.0); %Lymphocytes 20.2 % (21.0-51.0); %Monocytes 4.9 % (0.0-10.0); Hemoglobin 13.2 g/dL (12.0-16.0); Mean Corpuscular HGB CONC 34.5 g/dL (32.0-36.0); Mean Corpuscular Hemoglobin 30.4 pg (27.0-31.0); Mean Corpuscular Volume 88.1 fL (78.0-98.0); Mean Platelet Volume 8.6 fL (7.4-10.4); Platelet Count 224 thou/uL (130-400); RBC Distribution Width 14.3 % (11.5-14.5); Red Blood Cell (RBC) Count 4.35 mill/uL (4.20-5.40); White Blood Cell (WBC) Count 8.5 thou/uL (4.8-10.8)
[2022-01-24] MEDS ORDERED: HYDROcodone/Acetaminophen 5/325 mg Tablet ONE (19:43)
[2022-01-24 20:01] LABS: ALT (SGPT) 12 U/L (8-55); AST (SGOT) 12 U/L (5-34); Albumin 4.1 g/dL (3.4-4.8); Alkaline Phosphatase 123 U/L (40-110); Anion Gap 15 mmol/L (10-20); BUN (Urea Nitrogen) 11 mg/dL (9.8-20.1); Bilirubin, Total 0.6 mg/dL (0.2-1.2); Calc. Creatinine Clearance 0 mL/min (70-130); Calcium 9.3 mg/dL (7.8-10.44); Carbon Dioxide 21 mmol/L (23-31); Chloride 98 mmol/L (98-107); Estimated GFR 36; Globulin 2.7 g/dL (2.4-3.5); Potassium 4.3 mmol/L (3.5-5.1); Protein, Total 6.8 g/dL (5.8-8.1); Sodium 130 mmol/L (136-145)
[2022-01-24 20:10] LABS: Glucose 658 mg/dL (80-115)
[2022-01-24] MEDS ORDERED: Lidocaine Viscous Sol 2% 15 ml UD Cup ONE (20:47)
[2022-01-24] MEDS ORDERED: Mag-Al Plus 1200 MG/1200 MG/120 MG/30 ML UDCUP ONE (20:47)
[2022-01-24 21:29] LABS: Bilirubin Negative (Negative); Blood, Urine Negative (Negative); Clarity Clear (Clear); Glucose, Urine (Dipstick) >=1000 mg/dL (Negative); Ketone, Urine Negative (Negative); Leukocyte Negative (Negative); Nitrite Negative (Negative); Protein, Urine (Dipstick) Negative (Neg-Trace); Urobilinogen 0.2 mg/dL (Less than 2); pH, Urine 5.5 (5.0-9.0)
== END 2022-01-24 23:35 | disposition home or self-care (01) ==
LOC: BURERS 18:50
DX: S43.402A Unspecified sprain of left shoulder joint, initial encounter (principal); E11.65 Type 2 diabetes mellitus with hyperglycemia; I10 Essential (primary) hypertension; I25.10 Atherosclerotic heart disease of native coronary artery without angina pectoris; E78.5 Hyperlipidemia, unspecified; X58.XXXA Exposure to other specified factors, initial encounter
CPT/HCPCS: 36416; 71045; 80053; 81003; 83880; 84484; 85025; 93005; 96360; 96361

== ENCOUNTER 2022-02-11 16:28 | Emergency (ER) | payer OTHER ==
[2022-02-11 17:13] LABS: #Basophils 0.1 thou/uL (0.0-0.2); #Eosinphils 0.3 thou/uL (0.0-0.7); #Lymphocytes 1.6 thou/uL (1.20-3.40); #Monocytes 0.4 thou/uL (0.11-0.59); #Neutrophils 7.1 thou/uL (1.40-6.50); %Basophils 0.6 % (0.0-1.0); %Eosinophils 2.8 % (0.0-10.0); %Lymphocytes 16.9 % (21.0-51.0); %Monocytes 4.2 % (0.0-10.0); %Neutrophils 75.5 % (42.0-75.0); Hemoglobin 13.5 g/dL (12.0-16.0); Mean Corpuscular HGB CONC 33.8 g/dL (32.0-36.0); Mean Corpuscular Hemoglobin 29.8 pg (27.0-31.0); Mean Corpuscular Volume 88.1 fL (78.0-98.0); Mean Platelet Volume 8.2 fL (7.4-10.4); Platelet Count 209 thou/uL (130-400); RBC Distribution Width 13.9 % (11.5-14.5); Red Blood Cell (RBC) Count 4.52 mill/uL (4.20-5.40); White Blood Cell (WBC) Count 9.3 thou/uL (4.8-10.8)
[2022-02-11] MEDS ORDERED: Insulin Regular 300 UNITS/3 ML VIAL ONE (17:20)
[2022-02-11 17:31] LABS: ALT (SGPT) 12 U/L (8-55); AST (SGOT) 10 U/L (5-34); Albumin 4.2 g/dL (3.4-4.8); Alkaline Phosphatase 111 U/L (40-110); Anion Gap 16 mmol/L (10-20); BUN (Urea Nitrogen) 15 mg/dL (9.8-20.1); Bilirubin, Total 0.8 mg/dL (0.2-1.2); Calc. Creatinine Clearance 0 mL/min (70-130); Calcium 9.7 mg/dL (7.8-10.44); Carbon Dioxide 22 mmol/L (23-31); Chloride 101 mmol/L (98-107); Estimated GFR 41; Glucose 386 mg/dL (80-115); Potassium 3.8 mmol/L (3.5-5.1); Protein, Total 7.2 g/dL (5.8-8.1); Sodium 135 mmol/L (136-145)
[2022-02-11 19:35] LABS: Bilirubin Negative (Negative); Blood, Urine Trace (Negative); Clarity Slightly Cloudy (Clear); Glucose, Urine (Dipstick) 500 mg/dL (Negative); Ketone, Urine Negative (Negative); Leukocyte Negative (Negative); Nitrite Negative (Negative); Protein, Urine (Dipstick) 30 mg/dL (Neg-Trace); Specific Gravity, Urine 1.015 (1.005-1.030); Urobilinogen 0.2 mg/dL (Less than 2); pH, Urine 5.5 (5.0-9.0)
[2022-02-11 19:43] LABS: Bacteria/HPF 1+ HPF (None Seen); Mucous/LPF 1+ LPF (<2+); RBC/HPF 0-3 HPF (0-3); WBC/HPF 0-3 HPF (0-3); Yeast-Budding 1+ HPF (None Seen)
== END 2022-02-11 19:55 | disposition home or self-care (01) ==
LOC: BURERS 16:28
DX: E11.65 Type 2 diabetes mellitus with hyperglycemia (principal); I12.9 Hypertensive chronic kidney disease with stage 1 through stage 4 chronic kidney disease, or unspecified chronic kidney disease; E11.22 Type 2 diabetes mellitus with diabetic chronic kidney disease; N18.30 Chronic kidney disease, stage 3 unspecified; I25.2 Old myocardial infarction; I25.10 Atherosclerotic heart disease of native coronary artery without angina pectoris; E78.5 Hyperlipidemia, unspecified; Z86.73 Personal history of transient ischemic attack (TIA), and cerebral infarction without residual deficits; Z95.5 Presence of coronary angioplasty implant and graft
CPT/HCPCS: 36416; 71045; 80053; 81003; 81015; 83880; 84484; 85025; 93005; 94760; 96361; 96374; J1815

== ENCOUNTER 2022-06-10 15:43 | Emergency (ER) | payer OTHER ==
[~2022-06-10 15:43] MED LIST: Iopamidol 370 76% 100 ML VIAL ONE
[2022-06-10] MEDS ORDERED: Ketorolac Tromethamine 30 MG/ML VIAL ONE (16:24)
[2022-06-10 16:25] LABS: #Eosinphils 0.1 thou/uL (0.0-0.7); #Lymphocytes 1.4 thou/uL (1.20-3.40); #Monocytes 0.3 thou/uL (0.11-0.59); #Neutrophils 5.5 thou/uL (1.40-6.50); %Basophils 0.6 % (0.0-1.0); %Eosinophils 1.8 % (0.0-10.0); %Lymphocytes 19.1 % (21.0-51.0); %Monocytes 4.4 % (0.0-10.0); %Neutrophils 74.1 % (42.0-75.0); Hemoglobin 13.1 g/dL (12.0-16.0); Mean Corpuscular HGB CONC 34.9 g/dL (32.0-36.0); Mean Corpuscular Hemoglobin 29.9 pg (27.0-31.0); Mean Corpuscular Volume 85.7 fl (78.0-98.0); Mean Platelet Volume 7.8 fL (7.4-10.4); Platelet Count 220 10x3/uL (130-400); RBC Distribution Width 13.2 % (11.5-14.5); White Blood Cell (WBC) Count 7.4 10x3/uL (4.8-10.8)
[2022-06-10 16:44] LABS: ALT (SGPT) 13 U/L (8-55); AST (SGOT) 15 U/L (5-34); Alkaline Phosphatase 79 U/L (40-110); Anion Gap 14 mmol/L (10-20); BUN (Urea Nitrogen) 10 mg/dL (9.8-20.1); Bilirubin, Total 0.4 mg/dL (0.2-1.2); Calc. Creatinine Clearance 0 mL/min (70-130); Carbon Dioxide 26 mmol/L (23-31); Chloride 100 mmol/L (98-107); Estimated GFR 42; Globulin 3.1 g/dL (2.4-3.5); Glucose 297 mg/dL (80-115); Lipase 24 U/L (8-78); Magnesium 1.9 mg/dL (1.6-2.6); Potassium 3.5 mmol/L (3.5-5.1); Protein, Total 7.1 g/dL (5.8-8.1); Sodium 136 mmol/L (136-145)
[2022-06-10] MEDS ORDERED: Ciprofloxacin 500 MG TAB ONE (17:47)
== END 2022-06-10 17:53 | disposition home or self-care (01) ==
LOC: BURERS 15:43
DX: N39.0 Urinary tract infection, site not specified (principal); K57.30 Diverticulosis of large intestine without perforation or abscess without bleeding; I25.10 Atherosclerotic heart disease of native coronary artery without angina pectoris; E78.5 Hyperlipidemia, unspecified; E11.22 Type 2 diabetes mellitus with diabetic chronic kidney disease; I12.9 Hypertensive chronic kidney disease with stage 1 through stage 4 chronic kidney disease, or unspecified chronic kidney disease; N18.30 Chronic kidney disease, stage 3 unspecified
CPT/HCPCS: 74177; 80053; 83690; 83735; 85025; 96374; J1885; Q9967

== ENCOUNTER 2023-06-18 18:16 | Emergency (ER) | payer OTHER | END 2023-06-18 20:32 | disposition home or self-care (01) | LOC: BURERS 18:16 | DX: M79.602 Pain in left arm (principal); E11.22 Type 2 diabetes mellitus with diabetic chronic kidney disease; N18.30 Chronic kidney disease, stage 3 unspecified; I12.9 Hypertensive chronic kidney disease with stage 1 through stage 4 chronic kidney disease, or unspecified chronic kidney disease ==

== ENCOUNTER 2023-11-20 10:50 | Outpatient (CLI) | payer OTHER | END 2023-11-20 10:51 | disposition home or self-care (01) | LOC: BURRAD 10:50 | PROVIDERS: ATTEND Family Medicine | DX: S39.011D Strain of muscle, fascia and tendon of abdomen, subsequent encounter (principal); S30.1XXA Contusion of abdominal wall, initial encounter ==

== ENCOUNTER 2023-12-28 17:49 | Emergency (ER) | payer OTHER | END 2023-12-28 18:30 | disposition home or self-care (01) | LOC: BURERS 17:49 | DX: S30.861A Insect bite (nonvenomous) of abdominal wall, initial encounter (principal); S30.860A Insect bite (nonvenomous) of lower back and pelvis, initial encounter; W57.XXXA Bitten or stung by nonvenomous insect and other nonvenomous arthropods, initial encounter | CPT/HCPCS: 99282 ==

== ENCOUNTER 2024-02-12 08:57 | Outpatient (CLI) | payer OTHER ==
[2024-02-12 09:54] LABS: ALT (SGPT) 13 U/L (8-55); AST (SGOT) 16 U/L (5-34); Albumin 3.4 g/dL (3.4-4.8); Alkaline Phosphatase 81 U/L (40-110); Anion Gap 14 mmol/L (10-20); BUN (Urea Nitrogen) 6 mg/dL (9.8-20.1); Bilirubin, Total 0.6 mg/dL (0.2-1.2); Calc. Creatinine Clearance 0 mL/min (70-130); Calcium 9.1 mg/dL (7.8-10.44); Carbon Dioxide 24 mmol/L (23-31); Cardiac Risk 2.5 (Less than 4.5); Chloride 110 mmol/L (98-107); Cholesterol 112 mg/dl (< 200 Desired); Estimated GFR 65; Glucose 134 mg/dL (83-110); HDL Cholesterol 45 mg/dL (>60 Neg Risk); LDL Cholesterol, Calculated 42 mg/dL; Potassium 4.6 mmol/L (3.5-5.1); Protein, Total 6.4 g/dL (5.8-8.1); Sodium 143 mmol/L (136-145); Triglycerides 125 mg/dL (Less than 150)
== END 2024-02-12 08:58 | disposition home or self-care (01) ==
LOC: BURLAB 08:57
PROVIDERS: ATTEND Nurse Practitioner Family
DX: I25.10 Atherosclerotic heart disease of native coronary artery without angina pectoris (principal)
CPT/HCPCS: 36415; 80053; 80061